=== PATIENT | male | born 1945 | race Two or more races ===

== ENCOUNTER 2023-07-15 04:18 | Day surgery (SDC) | payer OTHER ==
[2023-07-09 08:29] LABS: PH,URINE 5.5 (5.0-8.0); URINE APPEARANCE Clear; URINE BILIRRUBIN Negative (NEGATIVE); URINE BLOOD Negative; URINE COLOR Yellow; URINE GLUCOSE Negative (NEGATIVE); URINE LEUKOCYTE Negative; URINE NITRATE Negative; URINE PROTEIN Negative (NEGATIVE); URINE UROBILINOGEN 0.2 E.U./dl
[2023-07-09 08:32] LABS: HEMATOCRIT 44.1 % (39.0-48.0); HEMOGLOBIN 14.9 g/dL (13-16.00); MEAN CELL VOLUME 91.4 fL (80.0-100.00); MEAN CORPUSCULAR HEMOGLOBIN 30.9 pg (27.00-32.0); MEAN CORPUSCULAR HGB CONC 33.8 g/dl (32.0-36.0); PLATELET COUNT 133 K/uL (150-450); RED BLOOD COUNT 4.83 M/uL (4.00-6.00); RED CELL DISTRIBUTION WIDTH 14.4 % (11.5-14.5); URINE BACTERIA 7.5 uL (0.0-1933); URINE EPITHELIAL CELLS 2.6 uL (0.0-38.8)
[2023-07-09 08:39] LABS: URINE RBC 1.1 uL (0.0-20.8); URINE WBC 1.6 uL (0.0-23.2)
[2023-07-09 08:55] LABS: INR 1.04; PARTIAL THROMBOPLASTIN TIME 29.9 SECONDS (22.0-34.0); PROTHROMBIN TIME 10.9 SECONDS (9.0-11.5)
[2023-07-09 09:03] LABS: ALBUMIN 4.1 gm/dL (3.4-5.0); BILIRUBIN TOTAL 0.63 mg/dL (0.3-1.2); CALCIUM 9.2 mg/dL (8.5-10.1); CREATININE SERUM 1.81 mg/dL (0.70-1.30); GFR 36.35; GLOBULINA 4.2 G/DL (2.4-3.5); POTASSIUM 4.8 mEq/L (3.5-5.1); TOTAL PROTEIN 8.3 gm/dL (6.4-8.2)
[~2023-07-15 04:18] MED LIST: ALENDRONATE SOD35 MG PO; CHILDREN'S ASPI81 MG PO; DIOVAN160 M1 PO; FINASTERIDE5 MG PO; LEVOTHYROXINE25 MCG PO; MAGNESIUM250 M1 PO; PLAVIX75 MG PO; SODIUM BICARBO650 MG PO; TAMS0.4C PO; TROSPIUM CHLORI60 MG PO; ZOCOR20 MG PO
== END 2023-07-15 12:50 | disposition home or self-care (01) ==
LOC: CIR.AMB 04:18
PROVIDERS: ATTEND Otolaryngology Otology & Neurotology
DX: H72.91 Unspecified perforation of tympanic membrane, right ear (principal); H61.811 Exostosis of right external canal; Z20.822 Contact with and (suspected) exposure to COVID-19; I10 Essential (primary) hypertension